=== PATIENT | female | born 1980 | race Caucasian/White ===

== ENCOUNTER 2019-03-21 08:21 | Emergency (ER) | payer MEDICAID ==
[~2019-03-21] VITALS: Ht 160 cm; Wt 70.0 kg
[2019-03-21 08:25] VITALS: BP 154/87
[2019-03-21] MEDS ORDERED: NAPROXEN 250MG TABLET PO ONE (09:00)
== END 2019-03-21 10:30 | disposition home or self-care (01) ==
LOC: ER 08:31
DX: S63.502A Unspecified sprain of left wrist, initial encounter (principal); S83.8X2A Sprain of other specified parts of left knee, initial encounter; M25.552 Pain in left hip; V03.10XA Pedestrian on foot injured in collision with car, pick-up truck or van in traffic accident, initial encounter; Y93.89 Activity, other specified; Y92.488 Other paved roadways as the place of occurrence of the external cause
CPT/HCPCS: 73100; 73502; 73552; 73560; 73590; 99284